=== PATIENT | female | born 1960 | race African-American/Black ===

== ENCOUNTER → 2016-10-16 | Outpatient (CLI) | payer MEDICAID ==
--- NOTE | 2016-10-29 11:16 | WOMENS IMAGING REPORT ---
EXAM DESCRIPTION: BILAT SCREENING MAMMO W/CAD COMPLETED DATE/TIME: 10/16/2016 7:51 am REASON FOR STUDY: Z12.31, ROUTINE SCREENING MAMMO Z12.31 ENCNTR SCREEN MAMMOGRAM FOR MALIGNANT NEOP LASM OF RANDOLPH COMPARISON: None. TECHNIQUE: Standard craniocaudal and mediolateral oblique views of each breast recorded using [employer] l acquisition. LIMITATIONS: None. FINDINGS: RIGHT BREAST MASSES: Several small nodules, most of similar size. There is a dominant nodule in the upper-outer b reast located 3.5- 4.5 cm from the nipple. CALCIFICATIONS: No new or suspicious calcifications. ARCHITECTURAL DISTORTION: None. DEVELOPING DENSITY: None. ASYMMETRY: None noted. OTHER: No other significant findings. LEFT BREAST MASSES: Several small nodules of similar size. CALCIFICATIONS: No new or suspicious calcifications. ARCHITECTURAL DISTORTION: None. DEVELOPING DENSITY: None. ASYMMETRY: None noted. OTHER: No other significant findings. Read with the assistance of CAD. .[facility] - R2 Cenova Version 1.3 .[facility] - R2 Cenova Version 1.3 .[facility] - R2 Cenova Version 2.4 .[facility] [place] [facility] - R2 Cenova Version 2.4 .[facility] - R2 R And D Lab Technician Version 9.2 IMPRESSION: Several small nodules of similar size in both breasts. There is a dominant nodule in th e upper-outer right breast. BREAST DENSITY: b. There are scattered areas of fibroglandular density. BIRAD: 0 Incomplete: Needs Additional Imaging Evaluation and/or prior Mammograms for Comparison. RECOMMENDATION: RECOMMENDED FOLLOW-UP: Recommend additional evaluation with compression views and ul trasound of the right breast. Recommend routine screening mammography of the left breast. The patient will be contacted for additional imaging. COMMENT: The patient has been notified of the results by letter per SA requirements. Additional no tification policies are in place for contacting patient with suspicious or incomplete findings. Quality ID #[id number]: The [employer] recommends an annual screening mammogram for women aged 40 years or over. This facility utilizes a reminder system to ensure that all patients receive reminder letters, and/or direct phone calls for appointments. This includes reminders for routine scr eening mammograms, diagnostic mammograms, or other Breast Imaging Interventions when appropriate. Th is patient will be placed in the appropriate reminder system. The [employer] (ACR) has developed recommendations for screening MRI of the breast s in certain patient populations, to be used in conjunction with mammography. Breast MRI surveillanc e may be appropriate for women with more than 20% lifetime risk of developing breast cancer as deter mined by genetic testing, significant family history of the disease, or history of mantle radiation f or Hodgkins Disease. ACR Practice Guidelines 2008. TECHNICAL DOCUMENTATION: FINDING NUMBER: (1) ASSESSMENT: (1) JOB ID: [id number] [employer]- All Rights Reserved
== END ==
LOC: WI 10:08
PROVIDERS: ATTEND Physician Assistant
DX: Z12.31 Encounter for screening mammogram for malignant neoplasm of breast (principal)
CPT/HCPCS: 77067; G0202

== ENCOUNTER 2017-02-25 04:01 | Emergency (ER) | payer MEDICAID ==
[2017-02-25] MEDS ORDERED: AMLODIPINE BESYLATE 5 MG TABLET PO ONE (04:14)
[2017-02-25] MEDS ORDERED: HYDROCHLOROTHIAZIDE 12.5 MG CAPSULE PO ONE (04:14)
[2017-02-25] MEDS ORDERED: LISINOPRIL 10 MG TABLET PO ONE (04:14)
--- NOTE | 2017-02-25 04:15 | ER Document Report ---
ED Extremity Problem, Lower - General Chief Complaint: Foot Pain Stated Complaint: LEFT FOOT PAIN Notes: The patient is a 57-year-old female, past medical history arthritis, hypertension, presents with 1 day of left first toe pain and foot pain. She does not remember an injury and has not had this before. Patient has not taken her 25 mg hydrochlorothiazide or 5 mg Norvasc yet today. She denies numbness, tingling, open wounds, injury, calf tenderness or fevers. TRAVEL OUTSIDE OF THE [place] IN LAST 30 DAYS: No - Related Data Allergies/Adverse Reactions: egg [Egg] Allergy (Verified 02/25/17 04:03) lisinopril Allergy (Verified 02/25/17 04:30) Past Medical History - General Information source: Patient - Social History Smoking Status: Unknown if Ever Smoked Family History: Hypertension - Past Medical History Cardiac Medical History: Reports: Hx Hypercholesterolemia, Hx Hypertension Psychiatric Medical History: Denies: Hx Depression Review of Systems - Review of Systems Notes: REVIEW OF SYSTEMS: CONSTITUTIONAL: -fevers, -chills EENT: -eye pain, -difficulty swallowing, -nasal congestion CARDIOVASCULAR:-chest pain, -syncope. RESPIRATORY: -cough, -SOB GASTROINTESTINAL: -abdominal pain, - nausea, -vomiting, -diarrhea GENITOURINARY: -dysuria, -hematuria MUSCULOSKELETAL: +left foot pain, -back pain, -neck pain SKIN: -rash or skin lesions. HEMATOLOGIC: -easy bruising or bleeding. LYMPHATIC: -swollen, enlarged glands. NEUROLOGICAL: -altered mental status or loss of consciousness, -headache, - neurologic symptoms PSYCHIATRIC: -anxiety, -depression. ALL OTHER SYSTEMS REVIEWED AND NEGATIVE. Physical Exam - Vital signs Vitals: Temp Pulse Resp BP Pulse Ox 98 F 97 14 218/120 H 99 02/25/17 04:08 02/25/17 04:08 02/25/17 04:08 02/25/17 04:08 02/25/17 04:08 - Notes Notes: PHYSICAL EXAMINATION: GENERAL: Well-appearing, well-nourished and in no acute distress. HEAD: Atraumatic, normocephalic. EYES: Pupils equal round and reactive to light, extraocular movements intact, sclera anicteric, conjunctiva are normal. ENT: nares patent, oropharynx clear without exudates. Moist mucous membranes. NECK: Normal range of motion, supple without lymphadenopathy LUNGS: Breath sounds clear to auscultation bilaterally and equal. No wheezes rales or rhonchi. HEART: Regular rate and rhythm without murmurs ABDOMEN: Soft, nontender, normoactive bowel sounds. No guarding, no rebound. No masses appreciated. EXTREMITIES: Normal range of motion, no pitting or edema. No cyanosis. Tenderness over base of left 1st toe and 1st metatarsal. Strong DP and PT pulses with brisk capillary refill. NEUROLOGICAL: Cranial nerves grossly intact. Normal speech, normal gait. Normal sensory and motor exams. PSYCH: Normal mood, normal affect. SKIN: Warm, Dry, normal turgor, no rashes or lesions noted. Course - Re-evaluation Re-evalutation: Patient provided a dose of her home blood pressure medications. Patient has good peripheral pulses and sensation intact. No erythema or rash. X-ray does not show any acute findings. Instructed her to use her Voltaren cream and follow-up with podiatry for further evaluation and treatment. Suspect a tendonitis of her flexor hallicus longus. - Vital Signs Vital signs: Temp Pulse Resp BP Pulse Ox 98 F 97 17 165/98 H 98 02/25/17 04:08 02/25/17 04:08 02/25/17 05:28 02/25/17 05:28 02/25/17 05:28 - Diagnostic Test Radiology reviewed: Image reviewed, Reports reviewed Radiology results interpreted by me: Left foot x-ray: NAD Discharge - Discharge Clinical Impression: Left foot pain Hypertension Qualifiers: Hypertension type: unspecified Qualified Code(s): I10 - Essential (primary) hypertension Condition: Stable Disposition: HOME, SELF-CARE Additional Instructions: Always take your blood pressure meds as prescribed. You may use your Voltaren cream to help out with your foot pain. The x-ray does not show any broken bones. Follow-up with your primary care physician and correspondence review clerk for further evaluation and treatment. Prescriptions: Diclofenac Sodium [Voltaren] 100 gm TP Q6H PRN #100 gel..gram. PRN Reason: Forms: Elevated Blood Pressure Referrals: KRISTIE VERA MD [Primary Care Provider] - Follow up as needed
[2017-02-25] MEDS ORDERED: IBUPROFEN 600 MG TABLET PO ONE (04:30)
[2017-02-25] MEDS ORDERED: HYDROCHLOROTHIAZIDE 25 MG TABLET PO ONE (04:30)
[2017-02-25] MEDS ORDERED: HYDROCODONE/ACETAMINOPHEN 5-325 MG TABLET PO ONE (04:30)
--- NOTE | 2017-02-25 05:19 | RADIOLOGY REPORT (SQ) ---
EXAM DESCRIPTION: FOOT LEFT COMPLETE COMPLETED DATE/TIME: 02/25/2017 4:58 am REASON FOR STUDY: left foot pain COMPARISON: None. NUMBER OF VIEWS: Three views. TECHNIQUE: AP, lateral and oblique radiographic images acquired of the left foot. LIMITATIONS: None. FINDINGS: MINERALIZATION: Normal. BONES: No acute fracture or dislocation. 0.5 cm subchondral degenerative cyst or chronic erosion of the medial left 1st metatarsal head. Small calcaneal enthesophytes. 0.4 cm ossicular fragment of th e medial malleolus. Moderate diminished calcaneal inclination angle on nonweightbearing view. JOINTS: No effusions. SOFT TISSUES: No soft tissue swelling. No foreign body. OTHER: No other significant finding. IMPRESSION: NO RADIOGRAPHIC EVIDENCE OF ACUTE INJURY. TECHNICAL DOCUMENTATION: JOB ID: [id number] [employer]- All Rights Reserved
[2017-02-25 05:30] VITALS: BP 165/98
== END 2017-02-25 05:48 | disposition home or self-care (01) ==
LOC: ER 04:01
DX: M79.672 Pain in left foot (principal); M79.675 Pain in left toe(s); I10 Essential (primary) hypertension; Z79.899 Other long term (current) drug therapy; Z91.012 Allergy to eggs; Z88.8 Allergy status to other drugs, medicaments and biological substances
CPT/HCPCS: 99283; 73630; J3490 ×3

== ENCOUNTER 2017-04-26 22:57 | Emergency (ER) | payer MEDICAID ==
[2017-04-27] MEDS ORDERED: ENALAPRIL MALEATE 5 MG TABLET PO ONE (00:42)
[2017-04-27] MEDS ORDERED: METOPROLOL TARTRATE 50 MG TABLET PO ONE (00:42)
--- NOTE | 2017-04-27 00:44 | ER Document Report ---
ED Blood Pressure Problem - General Chief Complaint: High Blood Pressure Stated Complaint: POSSIBLE HIGH PRESSURE Time Seen by Provider: 04/27/17 00:42 Mode of Arrival: Ambulatory Information source: Patient Notes: Patient is a 57-year-old female with hypertension who presents to the ER today for high blood pressure. Patient states she has been out of her 2 blood pressure medications, Enalapril and Lopressor for 3 days. Patient states her blood pressure today is been 200s over 100. She admits to headache and blurred vision earlier today but denies headache, blurred vision, chest pain, shortness of breath, nausea or vomiting at this time. She denies any weakness anywhere numbness and tingling. TRAVEL OUTSIDE OF THE [place] IN LAST 30 DAYS: No - Related Data Allergies/Adverse Reactions: egg [Egg] Allergy (Verified 02/25/17 04:03) lisinopril Allergy (Verified 02/25/17 04:30) Past Medical History - General Information source: Patient - Social History Smoking Status: Unknown if Ever Smoked Family History: Hypertension - Past Medical History Cardiac Medical History: Reports: Hx Hypercholesterolemia, Hx Hypertension Renal/ Medical History: Denies: Hx Peritoneal Dialysis Psychiatric Medical History: Denies: Hx Depression Review of Systems - Review of Systems Constitutional: No symptoms reported EENT: No symptoms reported Cardiovascular: No symptoms reported Respiratory: No symptoms reported Gastrointestinal: No symptoms reported Genitourinary: No symptoms reported Female Genitourinary: No symptoms reported Musculoskeletal: No symptoms reported Skin: No symptoms reported Hematologic/Lymphatic: No symptoms reported Neurological/Psychological: No symptoms reported Physical Exam - Vital signs Vitals: Temp Pulse Resp BP Pulse Ox 98.8 F 103 H 18 201/96 H 99 04/26/17 23:02 04/26/17 23:02 04/26/17 23:02 04/26/17 23:02 04/26/17 23:02 - Notes Notes: PHYSICAL EXAMINATION: GENERAL: Well-appearing and in no acute distress. HEAD: Atraumatic, normocephalic. EYES: Pupils equal round and reactive to light, extraocular movements intact, sclera anicteric, conjunctiva are normal. ENT: ear canals without erythema or foreign body, TMs pearly wright with good bony landmarks, nares patent, oropharynx clear without exudates. Moist mucous membranes. NECK: Normal range of motion, supple without lymphadenopathy LUNGS: CTAB and equal. No wheezes rales or rhonchi. HEART: Regular rate and rhythm without murmurs ABDOMEN: Soft, no tenderness. No guarding, no rebound BACK: no vertebral tenderness, normal ROM GI/: no CVA tenderness EXTREMITIES: Normal range of motion, no pitting edema. No cyanosis. NEUROLOGICAL: Cranial nerves grossly intact. Normal sensory/motor exams. PSYCH: Normal mood, normal affect. SKIN: Warm, Dry, normal turgor, no rashes or lesions noted Course - Re-evaluation Re-evalutation: 04/27/17 04:08 Patient was given her nightly doses of her 2 blood pressure medications here in the ER and will be sent home with refills. She is asymptomatic hypertension at this time. - Vital Signs Vital signs: Temp Pulse Resp BP Pulse Ox 98.1 F 82 18 205/100 H 99 04/27/17 00:54 04/27/17 00:54 04/27/17 00:54 04/27/17 00:54 04/27/17 00:54 Discharge - Discharge Clinical Impression: HTN (hypertension) Qualifiers: Hypertension type: unspecified Qualified Code(s): I10 - Essential (primary) hypertension Condition: Stable Disposition: HOME, SELF-CARE Instructions: High Blood Pressure, Requiring Treatment ([facility]) Additional Instructions: Return immediately for any new or worsening symptoms. Follow up with primary care provider, call tomorrow to make followup appointment. Prescriptions: Enalapril Maleate [Vasotec 5 mg Tablet] 5 mg PO BID #60 tablet Metoprolol Tartrate [Lopressor 50 mg Tablet] 50 mg PO Q12H #60 tablet Referrals: KRISTIE VERA MD [Primary Care Provider] - Follow up as needed
[2017-04-27 00:55] VITALS: BP 205/100
--- NOTE | 2017-04-27 08:53 | EKG REPORT ---
SEVERITY:- ABNORMAL ECG - SINUS TACHYCARDIA LEFT ATRIAL ABNORMALITY PROBABLE LEFT VENTRICULAR HYPERTROPHY : Confirmed by: Daniel Moreno MD 27-Apr-2017 08:53:10
== END 2017-04-27 00:55 | disposition home or self-care (01) ==
LOC: ER 22:57
DX: I10 Essential (primary) hypertension (principal); R51 Headache; H53.8 Other visual disturbances; R07.9 Chest pain, unspecified; R06.02 Shortness of breath; R11.2 Nausea with vomiting, unspecified; Z79.899 Other long term (current) drug therapy
CPT/HCPCS: 93005; 99283; 93010; J3490 ×2

== ENCOUNTER 2017-05-05 09:44 | Emergency (ER) | payer MEDICAID ==
--- NOTE | 2017-05-05 10:20 | ER Document Report ---
HPI - HPI Patient complains to provider of: Runny nose cough fever Onset: Other - 4 days Pain Level: 3 Context: 57-year-old hypertensive female who took her medicine before she came has had fever with body aches, runny nose, cough, rib soreness due to coughing, and diarrhea that started today. No chest pain or shortness of breath. No abdominal pain. The fever has really resolved. 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 She came to the emergency room because she was worried that she would get the dangerous bug that is killing people. Associated Symptoms: None Exacerbated by: Denies Relieved by: Denies Similar symptoms previously: Yes Recently seen / treated by doctor: No - ROS ROS below otherwise negative: Yes Systems Reviewed and Negative: Yes All other systems reviewed and negative Past Medical History - General Information source: Patient - Social History Smoking Status: Current Every Day Smoker Frequency of alcohol use: None Drug Abuse: None Occupation: [employer] Lives with: Family Family History: Hypertension - Past Medical History Cardiac Medical History: Reports: Hx Hypercholesterolemia, Hx Hypertension Renal/ Medical History: Denies: Hx Peritoneal Dialysis Surgical Hx: Negative Vertical Provider Document - CONSTITUTIONAL Agree With Documented VS: Yes - Obese Exam Limitations: No Limitations - INFECTION CONTROL TRAVEL OUTSIDE OF THE [place] IN LAST 30 DAYS: No - HEENT HEENT: Normocephalic, Pharyngeal Erythema - Minimal. negative: Conjuctival Injection, Tympanic Membrane Red, Tympanic Membrane Bulging Notes: Clear runny nose - NECK Neck: Supple. negative: Lymphadenopathy-Left, Lymphadenopathy-Right - RESPIRATORY Respiratory: Breath Sounds Normal, No Respiratory Distress O2 Sat by Pulse Oximetry: 97 - CARDIOVASCULAR Cardiovascular: Regular Rate, Regular Rhythm - MUSCULOSKELETAL/EXTREMETIES Musculoskeletal/Extremeties: MAEW - NEURO Level of Consciousness: Awake, Alert, Appropriate - DERM Integumentary: Warm, Dry Course - Vital Signs Vital signs: Temp Pulse Resp BP Pulse Ox 99.1 F 92 16 164/91 H 97 05/05/17 09:50 05/05/17 09:50 05/05/17 09:50 05/05/17 09:50 05/05/17 09:50 Discharge - Discharge Clinical Impression: Influenza-like illness, Diarrhea Condition: Good Disposition: HOME, SELF-CARE Instructions: Influenza ([facility]) [id number], Acetaminophen, Diarrhea, Nonspecific ( [facility]) Additional Instructions: plenty of fluids Coolmist humidifier, wash it daily Iahi-mdk-uwnzoca Mucinex with decongestant Rest Return to the emergency room if symptoms worsen with chest pain shortness of breath trouble breathing, recurrence of the fever. Referrals: KRISTIE VERA MD [Primary Care Provider] - Follow up as needed
[2017-05-05 10:55] VITALS: BP 158/88
== END 2017-05-05 10:50 | disposition home or self-care (01) ==
LOC: ER 09:44
DX: J11.1 Influenza due to unidentified influenza virus with other respiratory manifestations (principal); R19.7 Diarrhea, unspecified; R50.9 Fever, unspecified; R09.89 Other specified symptoms and signs involving the circulatory and respiratory systems; R05 Cough; I10 Essential (primary) hypertension; F17.200 Nicotine dependence, unspecified, uncomplicated; E66.9 Obesity, unspecified; Z68.35 Body mass index [BMI] 35.0-35.9, adult
CPT/HCPCS: 99283

== ENCOUNTER → 2017-06-26 | Outpatient (CLI) | payer MEDICAID ==
--- NOTE | 2017-06-26 14:24 | RADIOLOGY REPORT (SQ) ---
EXAM DESCRIPTION: U/S NON-OB PELVIS TV W/O DOP COMPLETED DATE/TIME: 06/26/2017 9:37 am REASON FOR STUDY: DYSPAREUNIA N94.10 UNSPECIFIED DYSPAREUNIA COMPARISON: None. TECHNIQUE: Dynamic and static grayscale images acquired of the pelvis via transvaginal approach and recorded on PACS. Additional selected color Doppler and spectral images recorded. LIMITATIONS: Bowel gas. Endovaginal technique only FINDINGS: UTERUS: Uterus is enlarged, at least 13 x 8 x 7 cm in size. Very heterogeneous myometrium with multiple hypoechoic masses likely fibroids. ENDOMETRIAL STRIPE: Not well seen CERVIX: 3 cm in length. Closed. RIGHT OVARY: Not visualized RIGHT OVARY DOPPLER: Not performed LEFT OVARY: Not well seen. Overall, the left ovary measures about 5 x 4 x 3 cm in size with a multi septated cystic lesion 2.9 x 2.7 cm in size LEFT OVARY DOPPLER: Normal arterial vascular flow without evidence for torsion. FREE FLUID: None noted. OTHER: No other significant finding. IMPRESSION: Very limited study due to bowel gas and transvaginal technique. Enlarged heterogeneous uterus from multiple fibroids. Right ovary not visualized. Enlarged left ovary with complex 2.9 x 2.7 cm cystic lesion Consider follow-up MRI pelvis without and with contrast, to evaluate fibroid uterus and left ovary co mplex cystic lesion TECHNICAL DOCUMENTATION: JOB ID: [id number] [employer] All Rights Reserved Reading location - IP/workstation name: [email or web address]-[email or web address]
== END ==
LOC: RAD 08:44
PROVIDERS: ATTEND Physician Assistant
DX: N94.10 Unspecified dyspareunia (principal); D25.9 Leiomyoma of uterus, unspecified; N83.292 Other ovarian cyst, left side
CPT/HCPCS: 76830

== ENCOUNTER 2017-12-16 11:29 | Emergency (ER) | payer BC, MEDICAID ==
--- NOTE | 2017-12-16 13:36 | ER Document Report ---
HPI - HPI Patient complains to provider of: Anterior ankle pain Onset: This morning Pain Level: 5 Context: 57-year-old female c/o anterior right ankle pain because she got out of bed this morning and fell because her right foot was "asleep". She fell onto her left knee but thnks she injuyred the ankle because it hurts to walk on it. She also does not have her blood pressure medication because when she evacuated she did not realize she had brought it and then she left it there. No headache or dizziness. No chest pain or shortness of breath. Associated Symptoms: None Exacerbated by: Walking Relieved by: Denies Similar symptoms previously: No Recently seen / treated by doctor: No - ROS ROS below otherwise negative: Yes Systems Reviewed and Negative: Yes All other systems reviewed and negative Past Medical History - General Information source: Patient - Social History Smoking Status: Unknown if Ever Smoked Lives with: Family Family History: Hypertension - Past Medical History Cardiac Medical History: Reports: Hx Hypercholesterolemia, Hx Hypertension Renal/ Medical History: Denies: Hx Peritoneal Dialysis Surgical Hx: Negative Vertical Provider Document - CONSTITUTIONAL Agree With Documented VS: Yes Exam Limitations: No Limitations - INFECTION CONTROL TRAVEL OUTSIDE OF THE [place] IN LAST 30 DAYS: No - NECK Neck: Supple - MUSCULOSKELETAL/EXTREMETIES Musculoskeletal/Extremeties: MAEW, FROM, Tender - Very tender anterior right ankle mild swelling. negative: Eccymosis - NEURO Level of Consciousness: Awake, Alert Motor/Sensory: No Motor Deficit, No Sensory Deficit Notes: 2+ DP - DERM Integumentary: No Rash Course - Re-evaluation Re-evalutation: 12/16/17 X-rays negative per radiologist and her blood pressure came down nicely treating the pain. I gave her prescription for both of her blood pressure medicines. and gave Her a dose here of both - Vital Signs Vital signs: Temp Pulse Resp BP Pulse Ox 97.7 F 88 16 225/106 H 98 12/16/17 11:37 12/16/17 11:37 12/16/17 11:37 12/16/17 11:37 12/16/17 11:37 Procedures - Immobilization Right Ankle Time completed: 15:20 Immobilizer type: Donald wrap, Crutches Performed by: PCT Post-Proc Neuro Vasc Exam: Normal Alignment checked and good: Yes Discharge - Discharge Clinical Impression: Arthritis of right foot Hypertension Qualifiers: Hypertension type: essential hypertension Qualified Code(s): I10 - Essential ( primary) hypertension Right ankle injury Qualifiers: Encounter type: initial encounter Qualified Code(s): S99.911A - Unspecified injury of right ankle, initial encounter Condition: Good Disposition: HOME, SELF-CARE Instructions: Acetaminophen, Arthritis ([facility]), Use of Crutches ([facility]), Ibuprofen (General) ([facility]), Sprained Ankle ([facility]) Additional Instructions: Crutches for a few days Donald wrap for comfort See the orthopedic doctor if it continues to hurt Elevate today Copy of negative x-rays given to you, Prescriptions: Ibuprofen [Motrin 600 mg Tablet] 600 mg PO Q8HP PRN #20 tablet PRN Reason: Enalapril Maleate [Vasotec] 5 mg PO BID #60 tablet Metoprolol Tartrate 50 mg PO BID #60 tablet Forms: Return to Work Referrals: CECIL YUSUF PA [PHYSICIAN TANK TRUCK LOADER] - Follow up tomorrow MARVIN VO MD [ACTIVE STAFF] - Follow up as needed
[2017-12-16] MEDS ORDERED: OXYCODONE-ACETAMINOPHEN 5-325 MG TABLET PO ONE (13:45)
[2017-12-16] MEDS ORDERED: ENALAPRIL MALEATE 5 MG TABLET PO ONE (13:45)
[2017-12-16] MEDS ORDERED: ONDANSETRON 4 MG TAB.RAPDIS PO ONE (13:45)
--- NOTE | 2017-12-16 14:24 | RADIOLOGY REPORT (SQ) ---
EXAM DESCRIPTION: FOOT RIGHT COMPLETE COMPLETED DATE/TIME: 12/16/2017 2:16 pm REASON FOR STUDY: pain in foot COMPARISON: None. NUMBER OF VIEWS: Three views. TECHNIQUE: AP, lateral and oblique without weight bearing radiographic images acquired of the right foot. LIMITATIONS: None. FINDINGS: MINERALIZATION: Normal. BONES: No acute fracture or dislocation. No worrisome bone lesions. Osteophytes tarsometatarsal joint s. JOINTS: Hallux valgus. No erosions. SOFT TISSUES: No swelling. No calcifications. OTHER: No other significant finding. IMPRESSION: Degenerative changes. TECHNICAL DOCUMENTATION: JOB ID: [id number] [employer]- All Rights Reserved Reading location - IP/workstation name: [email or web address]
--- NOTE | 2017-12-16 14:26 | RADIOLOGY REPORT (SQ) ---
EXAM DESCRIPTION: ANKLE RIGHT COMPLETE COMPLETED DATE/TIME: 12/16/2017 2:16 pm REASON FOR STUDY: fall, pain COMPARISON: None. NUMBER OF VIEWS: Three views. TECHNIQUE: AP, lateral, and oblique radiographic images acquired of the right ankle. LIMITATIONS: None. FINDINGS: MINERALIZATION: Normal. BONES: No acute fracture or dislocation. No worrisome bone lesions. JOINTS: No effusions. SOFT TISSUES: Medial swelling. OTHER: No other significant finding. IMPRESSION: No fracture. TECHNICAL DOCUMENTATION: JOB ID: [id number] [employer]- All Rights Reserved Reading location - IP/workstation name: [email or web address]
[2017-12-16 15:24] VITALS: BP 182/88
== END 2017-12-16 15:25 | disposition home or self-care (01) ==
LOC: ER 11:29
DX: M19.071 Primary osteoarthritis, right ankle and foot (principal); S99.911A Unspecified injury of right ankle, initial encounter; W18.30XA Fall on same level, unspecified, initial encounter; Y92.003 Bedroom of unspecified non-institutional (private) residence as the place of occurrence of the external cause; E78.00 Pure hypercholesterolemia, unspecified; I10 Essential (primary) hypertension
CPT/HCPCS: 99283; 73610; 73630; S0119; J3490

== ENCOUNTER 2018-03-20 17:16 | Emergency (ER) | payer BC ==
[2018-03-20] MEDS ORDERED: ASPIRIN 81 MG TABLET, CHEWABLE PO ONE (19:00)
--- NOTE | 2018-03-20 19:34 | RADIOLOGY REPORT (SQ) ---
EXAM DESCRIPTION: CHEST SINGLE VIEW COMPLETED DATE/TIME: 03/20/2018 7:21 pm REASON FOR STUDY: cp COMPARISON: 02/02/2015 EXAM PARAMETERS: NUMBER OF VIEWS: One view. TECHNIQUE: Single frontal radiographic view of the chest acquired. RADIATION DOSE: NA LIMITATIONS: None. FINDINGS: LUNGS AND PLEURA: No opacities, masses or pneumothorax. No pleural effusion. MEDIASTINUM AND HILAR STRUCTURES: No masses. Contour normal. HEART AND VASCULAR STRUCTURES: Heart normal in size. Normal vasculature. BONES: No acute findings. HARDWARE: None in the chest. OTHER: No other significant finding. IMPRESSION: NO ACUTE RADIOGRAPHIC FINDING IN THE CHEST. TECHNICAL DOCUMENTATION: JOB ID: [id number] [employer]- All Rights Reserved Reading location - IP/workstation name: [email or web address]
[2018-03-20] MEDS ORDERED: ONDANSETRON 4 MG TAB.RAPDIS PO ONE (19:38)
--- NOTE | 2018-03-20 19:41 | ER Document Report ---
ED Medical Screen (RME) - General Chief Complaint: Chest Pain Stated Complaint: CHEST PAIN Time Seen by Provider: 03/20/18 19:38 Notes: 58-year-old female chief complaint of feeling pain in the center and left side of her chest with sensation of shortness of breath that began at 4 PM, she states that shortly after this she became nauseated and vomited. She feels much improved now but symptoms have not completely resolved. She denies any ab dominal pain. Only past medical history reported are hypertension (medicated) and smoking. TRAVEL OUTSIDE OF THE [place] IN LAST 30 DAYS: No - Related Data Allergies/Adverse Reactions: egg [Egg] Allergy (Verified 12/16/17 11:31) lisinopril Allergy (Verified 12/16/17 11:31) Past Medical History - Past Medical History Cardiac Medical History: Reports: Hx Hypercholesterolemia, Hx Hypertension Renal/ Medical History: Denies: Hx Peritoneal Dialysis Psychiatric Medical History: Denies: Hx Depression Physical Exam - Vital signs Vitals: Temp Pulse Resp BP Pulse Ox 98.1 F 77 18 149/70 H 99 03/20/18 17:29 03/20/18 17:29 03/20/18 17:29 03/20/18 17:29 03/20/18 17:29 - General General appearance: Appears well In distress: None - Respiratory Chest status: Tender - Tender over left anterior mid chest wall - Cardiovascular Rhythm: Regular. No: Tachycardia Heart sounds: Normal auscultation, S1 appreciated, S2 appreciated Course - Re-evaluation Re-evalutation: I have greeted and performed a rapid initial assessment of this patient. A comprehensive ED assessment and evaluation of the patient, analysis of test results and completion of the medical decision making process will be conducted by additional ED providers. - Vital Signs Vital signs: Temp Pulse Resp BP Pulse Ox 98.1 F 77 18 149/70 H 99 03/20/18 17:29 03/20/18 17:29 03/20/18 17:29 03/20/18 17:29 03/20/18 17:29 Doctor's Discharge - Discharge Referrals: KRISTIE VERA MD [Primary Care Provider] - Follow up as needed
[2018-03-20 20:25] LABS: ABSOLUTE BASOPHILS # (AUTO) 0.1 10^3/uL (0.0-0.2); ABSOLUTE EOSINOPHILS # (AUTO) 0.1 10^3/uL (0.0-0.6); ABSOLUTE MONOCYTES (AUTO) 0.4 10^3/uL (0.1-1.4); ABSOLUTE NEUT (AUTO) 6.1 10^3/uL (1.7-8.2); BASOPHILS % (AUTO) 0.9 % (0-2); EOSINOPHILS % (AUTO) 0.7 % (0-6); HEMATOCRIT 35.5 % (36.0-47.0); HEMOGLOBIN 11.7 g/dL (12.0-15.5); LYMPHOCYTES % (AUTO) 23.4 % (13-45); MEAN CORPUSCULAR HEMOGLOBIN 28.3 pg (27.0-33.4); MEAN CORPUSCULAR HGB CONC 33.1 g/dL (32.0-36.0); MEAN CORPUSCULAR VOLUME 85 fl (80-97); MONOCYTES % (AUTO) 4.4 % (3-13); PLATELET COUNT 366 10^3/uL (150-450); RED BLOOD COUNT 4.16 10^6/uL (3.72-5.28); RED CELL DISTRIBUTION WIDTH 12.8 % (11.5-14.0); SEGMENTED NEUTROPHILS % (AUTO) 70.6 % (42-78); TOTAL CELLS COUNTED % (AUTO) 100 %; WHITE BLOOD COUNT 8.7 10^3/uL (4.0-10.5)
[2018-03-20 20:42] LABS: ALANINE AMINOTRANSFERASE 22 U/L (9-52); ALBUMIN 4.4 g/dL (3.5-5.0); ALKALINE PHOSPHATASE 110 U/L (38-126); ANION GAP 11 (5-19); ASPARTATE AMINO TRANSFERASE 22 U/L (14-36); BILIRUBIN,DIRECT 0.3 mg/dL (0.0-0.4); BILIRUBIN,TOTAL 0.4 mg/dL (0.2-1.3); BLOOD UREA NITROGEN 45 mg/dL (7-20); CALCIUM 9.8 mg/dL (8.4-10.2); CARBON DIOXIDE 24 mmol/L (22-30); CHLORIDE 108 mmol/L (98-107); GLUCOSE 88 mg/dL (75-110); POTASSIUM 4.4 mmol/L (3.6-5.0); SODIUM 142.5 mmol/L (137-145); TOTAL PROTEIN 7.6 g/dL (6.3-8.2)
[2018-03-20] MEDS ORDERED: HEPARIN SODIUM,PORCINE/D5W 25,000 UNIT/250 ML RTUINJ IV PRN (21:06)
[2018-03-20] MEDS ORDERED: HEPARIN SOD (PORCINE) 1,000 UNIT/ML 10 ML VIAL IV ONE (21:06)
[2018-03-20] MEDS ORDERED: NITROGLYCERIN 0.4 MG/TAB 25 TAB/BOTTLE SL PRN (21:07)
--- NOTE | 2018-03-20 21:13 | ER Document Report ---
ED Cardiac - General Chief Complaint: Chest Pain Stated Complaint: CHEST PAIN Time Seen by Provider: 03/20/18 19:38 TRAVEL OUTSIDE OF THE [place] IN LAST 30 DAYS: No - HPI Patient complains to provider of: Chest pain Was the onset of pain: Sudden Is the pain a: New problem Chest pain location: Substernal Quality of pain: Constant, Pressure. denies: Radiating Severity now: Mild Severity at worst: Severe Cardiac risk factors: Hypertension, Smoker, Dyslipidemia Associated symptoms: Nausea/vomiting Exacerbated by: Denies Relieved by: Nothing Similar symptoms previously: No Recently seen / treated by doctor: No Notes: Patient is a 58-year-old female that presents to the emergency department for chief complaint of chest pain. Patient states she was driving in her car around 4 PM today and had sudden onset of substernal chest pressure. She states it felt like a heaviness on her chest. She got very nauseated and had multiple episodes of emesis. She reports some mild shortness of breath stating it felt like she could not take a deep breath in. She denied any diaphoresis or radiation of her pain. She denies history of heart disease in the past. She states many years ago she had a negative cardiac stress test. She denies any known CAD. She does not take aspirin daily. Patient currently states she is feeling much better but still has a dull ache in her chest. Her nausea has completely resolved. Past Medical History: Hypertension, hyperlipidemia Past Surgical History: Reviewed in chart Social History: Daily tobacco. Denies drugs and alcohol Family History: Reviewed and noncontributory for presenting illness Allergies: Reviewed, see documented allergy list. REVIEW OF SYSTEMS: CONSTITUTIONAL : No fever No chills No diaphoresis No recent illness EENT: No vision changes No congestion No sore throat CARDIOVASCULAR: chest pain No palpitations RESPIRATORY: shortness of breath No cough No difficulty breathing GASTROINTESTINAL: No abdominal pain nausea vomiting No diarrhea GENITOURINARY: No dysuria No hematuria No difficulty urinating MUSCULOSKELETAL: No back pain No leg pain No arm pain SKIN: No rashes No lesions LYMPHATIC: No swollen, enlarged glands. NEUROLOGICAL: No lightheadedness No headache No weakness No paresthesias PSYCHIATRIC: No anxiety No depression PHYSICAL EXAMINATION: Vital signs reviewed, nursing noted reviewed. GENERAL: Well-appearing, well-nourished and in no acute distress. HEAD: Atraumatic, normocephalic. EYES: Eyes appear normal, extraocular movements intact, sclera anicteric, conjunctiva are normal. ENT: nares patent, oropharynx clear without exudates. Moist mucous membranes. NECK: Normal range of motion, supple without lymphadenopathy LUNGS: Breath sounds clear to auscultation bilaterally and equal. No wheezes rales or rhonchi. HEART: Regular rate and rhythm without murmurs ABDOMEN: Soft, nontender, normoactive bowel sounds. No rebound, guarding, or rigidity. No masses appreciated. EXTREMITIES: Nontender, good range of motion, no pitting or edema. NEUROLOGICAL: No focal neurological deficits. Moves all extremities spontaneously Motor and sensory grossly intact on exam. PSYCH: Normal mood, normal affect. SKIN: Warm, Dry, normal turgor, no rashes or lesions noted on exposed skin - Related Data Allergies/Adverse Reactions: egg [Egg] Allergy (Verified 12/16/17 11:31) lisinopril Allergy (Verified 12/16/17 11:31) Past Medical History - Social History Smoking Status: Current Every Day Smoker Family History: Hypertension Patient has suicidal ideation: No Patient has homicidal ideation: No - Past Medical History Cardiac Medical History: Reports: Hx Hypercholesterolemia, Hx Hypertension Renal/ Medical History: Denies: Hx Peritoneal Dialysis Psychiatric Medical History: Denies: Hx Depression Physical Exam - Vital signs Vitals: Temp Pulse Resp BP Pulse Ox 98.1 F 77 18 149/70 H 99 03/20/18 17:29 03/20/18 17:29 03/20/18 17:29 03/20/18 17:29 03/20/18 17:29 Course - Re-evaluation Re-evalutation: 03/20/18 21:11 Vitals reviewed. Nursing notes reviewed. Patient given aspirin for her chest pain. I ordered nitro for her residual discomfort. Patient's EKG showed no ST elevation. Her troponin has come back positive which is new for her on chart review. I am concerned that she is having NSTEMI. Patient will be started on heparin infusion. The remainder of her workup is unremarkable. Chest x-ray negative. I did discuss patient's findings with her and my concern for her having an acute CO. She states she does not wish to stay in the emergency room. She seems to understand her current situation. I have ordered repeat EKG and am awaiting the patient's response whether she is going to sign out AGAINST MEDICAL ADVICE or allow me to admit her at a facility with the ability to do cardiac catheterization. Laboratory 03/20/18 03/20/18 03/20/18 20:14 20:14 20:14 WBC 8.7 RBC 4.16 Hgb 11.7 L Hct 35.5 L MCV 85 MCH 28.3 MCHC 33.1 RDW 12.8 Plt Count 366 Seg Neutrophils % 70.6 Lymphocytes % 23.4 Monocytes % 4.4 Eosinophils % 0.7 Basophils % 0.9 Absolute Neutrophils 6.1 Absolute Lymphocytes 2.0 Absolute Monocytes 0.4 Absolute Eosinophils 0.1 Absolute Basophils 0.1 Sodium 142.5 Potassium 4.4 Chloride 108 H Carbon Dioxide 24 Anion Gap 11 BUN 45 H Creatinine 1.52 H Est GFR ( Amer) 42 L Est GFR (Non-Af Amer) 35 L Glucose 88 Calcium 9.8 Total Bilirubin 0.4 Direct Bilirubin 0.3 Neonat Total Bilirubin Not Reportable Neonat Direct Bilirubin Not Reportable Neonat Indirect Bili Not Reportable AST 22 ALT 22 Alkaline Phosphatase 110 Troponin I 0.188 Total Protein 7.6 Albumin 4.4 Chest X-Ray 03/20/18 19:00 IMPRESSION: NO ACUTE RADIOGRAPHIC FINDING IN THE CHEST. 03/20/18 21:41 Patient reevaluated and is in agreement with being transferred for further cardiac care. She will be sent to [facility] for further management. Heparin drip was initiated. Dr. Roque accepts patient for transfer. Patient second EKG shows new ST elevation which is not quite meeting STEMI criteria, third EKG is being obtained right now. She is currently pain-free. 03/20/18 22:09 Patient's third EKG shows isolated ST changes in V3, she is not having a STEMI, she is still pain-free. Patient stable for transfer. - Vital Signs Vital signs: Temp Pulse Resp BP Pulse Ox 98.1 F 77 16 176/95 H 100 03/20/18 17:29 03/20/18 17:29 03/20/18 21:02 03/20/18 21:02 03/20/18 21:02 - Laboratory Result Diagrams: 03/20/18 20:14 03/20/18 20:14 Laboratory results interpreted by me: 03/20/18 03/20/18 03/20/18 20:14 20:14 20:14 Hgb 11.7 L Hct 35.5 L APTT 36.6 H Chloride 108 H BUN 45 H Creatinine 1.52 H Est GFR ( Amer) 42 L Est GFR (Non-Af Amer) 35 L - EKG Interpretation by Me Additional EKG results interpreted by me: 03/20/18 21:13 Interpreted by myself 1724: Normal sinus rhythm, rate 77, normal axis, no ectopy, no ST elevation, LVH 03/20/18 21:44 Interpreted by myself 2116: Normal sinus rhythm, rate 65, LVH, new ST elevation in V3 V4 with good morphology, no reciprocal ST depressions 03/20/18 22:06 Interpreted by myself 2155: Normal sinus rhythm, rate 67, normal axis, LVH, mild ST elevation V3 with no elevation in V4, no ST depression Critical Care Note - Critical Care Note Total time excluding time spent on procedures (mins): 45 Comments: Multiple repeat evaluations, interpretation of multiple EKGs, potential for cardiovascular decompensation, conversation with medical affairs specialist Discharge - Discharge Clinical Impression: NSTEMI (non-ST elevated myocardial infarction) Condition: Stable Disposition: [facility]
[2018-03-20 22:00] LABS: INTERNATIONAL RATION (INR) 0.97; PARTIAL THROMBOPLASTIN TIME 36.6 SEC (23.5-35.8); PROTHROMBIN TIME 13.4 SEC (11.4-15.4)
[2018-03-20 23:51] VITALS: BP 173/87
[2018-03-21] MEDS ORDERED: HEPARIN SOD (PORCINE) 1,000 UNIT/ML 10 ML VIAL IV PRN (00:07)
--- NOTE | 2018-03-21 15:07 | EKG REPORT ---
SEVERITY:- ABNORMAL ECG - SINUS RHYTHM LEFT VENTRICULAR HYPERTROPHY : Confirmed by: Ian Maya 21-Mar-2018 15:07:01
--- NOTE | 2018-03-21 15:08 | EKG REPORT ---
SEVERITY:- ABNORMAL ECG - SINUS RHYTHM LEFT VENTRICULAR HYPERTROPHY ST ELEVATION SUGGESTS PERICARDITIS : Confirmed by: Ian Myaa 21-Mar-2018 15:07:12
--- NOTE | 2018-03-21 15:08 | EKG REPORT ---
SEVERITY:- ABNORMAL ECG - SINUS RHYTHM LEFT VENTRICULAR HYPERTROPHY : Confirmed by: Ian Maya 21-Mar-2018 15:07:21
== END 2018-03-21 00:05 | disposition short-term general hospital (02) ==
LOC: ER 17:16
DX: I21.4 Non-ST elevation (NSTEMI) myocardial infarction (principal); R11.2 Nausea with vomiting, unspecified; R06.02 Shortness of breath; I10 Essential (primary) hypertension; Z91.012 Allergy to eggs; Z88.8 Allergy status to other drugs, medicaments and biological substances
CPT/HCPCS: 93005; 36415; 85025; 85610; 85730; 80053; 84484; 71045; 93010; J1644 ×2; S0119; 96365; 96366; 96376; 99291

== ENCOUNTER 2018-05-11 08:47 | Emergency (ER) | payer BC ==
[2018-05-11 08:53] VITALS: BP 171/91
--- NOTE | 2018-05-11 09:34 | ER Document Report ---
Entered by KEHINDE SABA SCRIBE 05/11/18 0930 Acting as scribe for:SARINA FORBES DO ED Medical Screen (RME) - General Chief Complaint: Post Surgical Bleeding Stated Complaint: POST OPERATION BLEEDING Time Seen by Provider: 05/11/18 09:25 Primary Care Provider: KRISTIE VERA MD [Primary Care Provider] - Follow up as needed Mode of Arrival: Ambulatory Information source: Patient Notes: Patient is a 66-year-old female with a history of an recent open heart surgery presents to the emergency department complaining of bleeding from her anterior chest wall onset this morning. Patient states that she had a heart open heart surgery on April 20, 2018. She states this morning she noticed a "bubble" forming over her sternum that opened and bled copiously. She denies any pain or other focal symptoms. Of significance, patient states that she has been doing a lot of her weight training this past week. I have greeted and performed a rapid initial assessment of this patient. A comprehensive ED assessment and evaluation of the patient, analysis of test results and completion of the medical decision making process will be conducted by additional ED providers. GENERAL: Alert, interacts well. No acute distress. HEAD: Normocephalic, Atraumatic. NECK: Full range of motion. Supple. Trachea midline. LUNGS: No respiratory distress. EXTREMITIES: Moves all four extremities spontaneously. PSYCH: Normal affect, normal mood. CHEST: Well healed sternotomy incision noted with a 1 cm skin tag/area of granulation tissue without fluctuance or signs of infection. There is a small amount of bleeding coming from this tissue. This is mildly tender to palpation. No surrounding erythema TRAVEL OUTSIDE OF THE [place] IN LAST 30 DAYS: No - Related Data Allergies/Adverse Reactions: egg [Egg] Allergy (Verified 05/11/18 09:34) lisinopril Allergy (Verified 05/11/18 09:34) Past Medical History - Past Medical History Cardiac Medical History: Reports: Hx Hypercholesterolemia, Hx Hypertension Renal/ Medical History: Denies: Hx Peritoneal Dialysis Psychiatric Medical History: Denies: Hx Depression Physical Exam - Vital signs Vitals: Temp Pulse Resp BP Pulse Ox 98.9 F 80 20 171/91 H 100 05/11/18 08:52 05/11/18 08:52 05/11/18 08:52 05/11/18 08:52 05/11/18 08:52 Course - Vital Signs Vital signs: Temp Pulse Resp BP Pulse Ox 98.9 F 80 20 171/91 H 100 05/11/18 08:52 05/11/18 08:52 05/11/18 08:52 05/11/18 08:52 05/11/18 08:52 Doctor's Discharge - Discharge Referrals: KRISTIE VERA MD [Primary Care Provider] - Follow up as needed I personally performed the services described in the documentation, reviewed and edited the documentation which was dictated to the scribe in my presence, and it accurately records my words and actions.
--- NOTE | 2018-05-11 10:11 | ER Document Report ---
ED General - General Chief Complaint: Post Surgical Bleeding Stated Complaint: POST OPERATION BLEEDING Time Seen by Provider: 05/11/18 09:25 Primary Care Provider: KRISTIE VERA MD [Primary Care Provider] - Follow up as needed Mode of Arrival: Ambulatory Information source: Patient Notes: Patient is a 58-year-old female who presents to the emergency department with history of open heart surgery which was performed on 03/21/18 at [facility]. Patient has a midsternal incision and patient states that this morning she had what she describes as a bubble to the middle of the incision which then opened up this morning and bled. Patient reports there was a lot of bleeding. Patient denies any pain. She denies any other symptoms to include chest pain, shortness of breath, nausea or vomiting. Patient reports the last time she saw her surgeon for a follow-up was on 05/02/18. TRAVEL OUTSIDE OF THE [place] IN LAST 30 DAYS: No - Related Data Allergies/Adverse Reactions: egg [Egg] Allergy (Verified 05/11/18 09:34) lisinopril Allergy (Verified 05/11/18 09:34) Past Medical History - General Information source: Patient - Social History Smoking Status: Former Smoker Frequency of alcohol use: None Drug Abuse: None Family History: Hypertension Patient has suicidal ideation: No Patient has homicidal ideation: No - Past Medical History Cardiac Medical History: Reports: Hx Hypercholesterolemia, Hx Hypertension Renal/ Medical History: Denies: Hx Peritoneal Dialysis Psychiatric Medical History: Denies: Hx Depression Past Surgical History: Reports: Hx Cardiac Surgery, Hx Open Heart Surgery - 02/2018 Review of Systems - Review of Systems Constitutional: No symptoms reported EENT: No symptoms reported Cardiovascular: No symptoms reported. denies: Chest pain, Palpitations Respiratory: No symptoms reported. denies: Hurts to breathe, Short of breath Gastrointestinal: No symptoms reported. denies: Nausea, Vomiting Genitourinary: No symptoms reported Female Genitourinary: No symptoms reported Musculoskeletal: See HPI Skin: See HPI Physical Exam - Vital signs Vitals: Temp Pulse Resp BP Pulse Ox 98.9 F 80 20 171/91 H 100 05/11/18 08:52 05/11/18 08:52 05/11/18 08:52 05/11/18 08:52 05/11/18 08:52 - Notes Notes: PHYSICAL EXAMINATION: GENERAL: Well-appearing, well-nourished and in no acute distress. HEAD: Atraumatic, normocephalic. EYES: Pupils equal round and reactive to light, extraocular movements intact, conjunctiva are normal. ENT: Nares patent, oropharynx clear without exudates. Moist mucous membranes. NECK: Normal range of motion, supple without lymphadenopathy LUNGS: Breath sounds clear to auscultation bilaterally and equal. No wheezes rales or rhonchi. HEART: Regular rate and rhythm without murmurs Chest: Mid sternal incision noted, appears to be healing well, no erythema. Small area of exposed granulation tissue just between the breasts, no fluctuance or induration. ABDOMEN: Soft, nontender, nondistended abdomen. No guarding, no rebound. No masses appreciated. Female : deferred Musculoskeletal: Normal range of motion, no pitting or edema. No cyanosis. NEUROLOGICAL: Cranial nerves grossly intact. Normal speech, normal gait. Normal sensory, motor exams PSYCH: Normal mood, normal affect. SKIN: Warm, Dry, normal turgor, no rashes or lesions noted. Course - Re-evaluation Re-evalutation: 05/11/18 10:08 Call placed to [facility], awaiting callback. 05/11/18 10:25 Dr. Melgar, Manager Of Business Operations at [facility]. He recommends placing a nonstick dressing over the area. He states unless I feel there is a reason to admit this patient he will have his outpatient team call her tomorrow to schedule a follow-up appointment. I do not see any indication for patient admission as patient is completely asymptomatic at this time. Patient will be discharged home in stable condition. - Vital Signs Vital signs: Temp Pulse Resp BP Pulse Ox 98.9 F 80 20 171/91 H 100 05/11/18 08:52 05/11/18 08:52 05/11/18 08:52 05/11/18 08:52 05/11/18 08:52 Discharge - Discharge Clinical Impression: Problem involving surgical incision Condition: Stable Disposition: HOME, SELF-CARE Additional Instructions: I called and spoke with Dr. melagr who is on your surgical team at [facility]. He states that his outpatient team will call you tomorrow to schedule a follow-up appointment. In the meanwhile please keep a sterile nonstick dressing on the area at all times. Return to the emergency department if you experience any new or worrisome symptoms. We will be happy to reevaluate you at any time. Referrals: KRISTIE VERA MD [Primary Care Provider] - Follow up as needed
== END 2018-05-11 10:33 | disposition home or self-care (01) ==
LOC: ER 08:47
DX: I97.620 Postprocedural hemorrhage of a circulatory system organ or structure following other procedure (principal); Z98.890 Other specified postprocedural states; Z87.891 Personal history of nicotine dependence; I10 Essential (primary) hypertension
CPT/HCPCS: 99283

== ENCOUNTER → 2018-07-24 | Outpatient (CLI) | payer BC, MEDICAID ==
[2018-07-24 13:17] LABS: ABSOLUTE EOSINOPHILS # (AUTO) 0.2 10^3/uL (0.0-0.6); ABSOLUTE LYMPHOCYTES (AUTO) 2.1 10^3/uL (0.5-4.7); ABSOLUTE MONOCYTES (AUTO) 0.3 10^3/uL (0.1-1.4); ABSOLUTE NEUT (AUTO) 2.6 10^3/uL (1.7-8.2); BASOPHILS % (AUTO) 0.9 % (0-2); HEMATOCRIT 31.9 % (36.0-47.0); HEMOGLOBIN 10.1 g/dL (12.0-15.5); LYMPHOCYTES % (AUTO) 39.9 % (13-45); MEAN CORPUSCULAR HEMOGLOBIN 26.2 pg (27.0-33.4); MEAN CORPUSCULAR HGB CONC 31.7 g/dL (32.0-36.0); MEAN CORPUSCULAR VOLUME 83 fl (80-97); PLATELET COUNT 346 10^3/uL (150-450); RED BLOOD COUNT 3.87 10^6/uL (3.72-5.28); RED CELL DISTRIBUTION WIDTH 14.9 % (11.5-14.0); SEGMENTED NEUTROPHILS % (AUTO) 50.2 % (42-78); TOTAL CELLS COUNTED % (AUTO) 100 %; WHITE BLOOD COUNT 5.2 10^3/uL (4.0-10.5)
[2018-07-24 13:43] LABS: ALANINE AMINOTRANSFERASE 44 U/L (9-52); ALBUMIN 3.5 g/dL (3.5-5.0); ALKALINE PHOSPHATASE 108 U/L (38-126); ANION GAP 8 (5-19); ASPARTATE AMINO TRANSFERASE 31 U/L (14-36); BILIRUBIN,DIRECT 0.3 mg/dL (0.0-0.4); BILIRUBIN,TOTAL 0.4 mg/dL (0.2-1.3); BLOOD UREA NITROGEN 31 mg/dL (7-20); CALCIUM 9.4 mg/dL (8.4-10.2); CARBON DIOXIDE 23 mmol/L (22-30); CHLORIDE 111 mmol/L (98-107); CHOLESTEROL 149.64 mg/dL (0-200); GLUCOSE 70 mg/dL (75-110); POTASSIUM 5.4 mmol/L (3.6-5.0); SODIUM 142.2 mmol/L (137-145); TOTAL PROTEIN 6.9 g/dL (6.3-8.2); TRIGLYCERIDES 76 mg/dL (<150)
[2018-07-24 13:54] LABS: DIRECT LDL 72 mg/dL (<100)
== END ==
LOC: OD 11:46
PROVIDERS: ATTEND Family Medicine
DX: I10 Essential (primary) hypertension (principal); E78.5 Hyperlipidemia, unspecified
CPT/HCPCS: 36415; 80053; 80061; 85025

== ENCOUNTER 2019-09-06 13:49 | Emergency (ER) | payer BC, MEDICAID ==
[2019-09-06 14:16] LABS: ABSOLUTE BASOPHILS # (AUTO) 0.1 10^3/uL (0.0-0.2); ABSOLUTE EOSINOPHILS # (AUTO) 0.1 10^3/uL (0.0-0.6); ABSOLUTE LYMPHOCYTES (AUTO) 1.7 10^3/uL (0.5-4.7); ABSOLUTE MONOCYTES (AUTO) 0.3 10^3/uL (0.1-1.4); ABSOLUTE NEUT (AUTO) 4.8 10^3/uL (1.7-8.2); EOSINOPHILS % (AUTO) 1.4 % (0-6); HEMATOCRIT 34.4 % (36.0-47.0); HEMOGLOBIN 11.3 g/dL (12.0-15.5); LYMPHOCYTES % (AUTO) 24.8 % (13-45); MEAN CORPUSCULAR HEMOGLOBIN 28.8 pg (27.0-33.4); MEAN CORPUSCULAR HGB CONC 32.8 g/dL (32.0-36.0); MEAN CORPUSCULAR VOLUME 88 fl (80-97); MONOCYTES % (AUTO) 4.5 % (3-13); PLATELET COUNT 299 10^3/uL (150-450); RED BLOOD COUNT 3.92 10^6/uL (3.72-5.28); RED CELL DISTRIBUTION WIDTH 13.2 % (11.5-14.0); SEGMENTED NEUTROPHILS % (AUTO) 68.3 % (42-78); TOTAL CELLS COUNTED % (AUTO) 100 %
--- NOTE | 2019-09-06 14:31 | RADIOLOGY REPORT (SQ) ---
Chest radiograph, single view EXAM DESCRIPTION: CHEST SINGLE VIEW IMAGES COMPLETED DATE/TIME: 09/06/2019 1:10 pm REASON FOR STUDY: chest pain. COMPARISON: 03/20/2018 EXAM PARAMETERS: NUMBER OF VIEWS: One view. TECHNIQUE: Single frontal radiographic view of the chest acquired. RADIATION DOSE: NA LIMITATIONS: None. FINDINGS: LUNGS AND PLEURA: No opacities, masses or pneumothorax. No pleural effusion. MEDIASTINUM AND HILAR STRUCTURES: No masses. Contour normal. HEART AND VASCULAR STRUCTURES: Interval CABG. Heart has normal size. No pulmonary vascular congesti on. BONES: No acute findings. HARDWARE: None in the chest. OTHER: No other significant finding. IMPRESSION: No acute cardiopulmonary disease. TECHNICAL DOCUMENTATION: JOB ID: [id number] 2010 [employer]- All Rights Reserved Reading location - IP/workstation name: [email or web address]
[2019-09-06 14:33] LABS: ALBUMIN 4.1 g/dL (3.5-5.0); ALKALINE PHOSPHATASE 137 U/L (38-126); ANION GAP 8 (5-19); ASPARTATE AMINO TRANSFERASE 20 U/L (14-36); BILIRUBIN,TOTAL 0.5 mg/dL (0.2-1.3); BLOOD UREA NITROGEN 34 mg/dL (7-20); CALCIUM 9.3 mg/dL (8.4-10.2); CARBON DIOXIDE 19 mmol/L (22-30); CHLORIDE 114 mmol/L (98-107); CREATINE KINASE 88 U/L (30-135); GLUCOSE 82 mg/dL (75-110); POTASSIUM 4.4 mmol/L (3.6-5.0); TOTAL PROTEIN 7.4 g/dL (6.3-8.2)
[2019-09-06] MEDS ORDERED: METOPROLOL TARTRATE 25 MG TABLET PO ONE (14:42)
[2019-09-06 14:43] LABS: CREATINE KINASE MB 1.24 ng/mL (<4.55); TROPONIN I 0.017 ng/mL
[2019-09-06] MEDS ORDERED: METOPROLOL TARTRATE PF/INJ 5 MG/5 ML SDV IV ONE (14:43)
--- NOTE | 2019-09-06 15:03 | ER Document Report ---
Entered by MIN SALAZAR SCRIBE 09/06/19 0616 Acting as scribe for:TATIANA ERWIN, DO ED General - General Chief Complaint: Chest Pain Stated Complaint: CHEST PAIN Time Seen by Provider: 09/06/19 14:29 Primary Care Provider: KRISTIE VERA MD [Primary Care Provider] - Follow up as needed Information source: Patient Notes: This 59 year old female patient presents to the emergency department today with complaints of chest pain. Patient states she was arguing with her daughter over her granddaughter being taken away when she takes care of her. Patient states she felt chest pain and it lasted for x15-20 minutes. Patient state this has not happened before. Patient states she had a headache and shortness of breath, but these symptoms were relieved after taking x4 baby aspirin from EMS personnel. Patient states she had a CABG x1.5 years ago and has not had problems since. Patient states she has hypertension and hypercholesterolemia, but stopped taking medications due to financial reasons. Patient states she has an appointment this week with her PCP to start her medications again. TRAVEL OUTSIDE OF THE [place] IN LAST 30 DAYS: No - Related Data Allergies/Adverse Reactions: lisinopril Allergy (Intermediate, Verified 09/06/19 13:53) Brassy Cough egg [Egg] Allergy (Verified 09/06/19 13:53) Home Medications: pt denies Past Medical History - General Information source: Patient - Social History Smoking Status: Current Every Day Smoker Cigarette use (# per day): Yes - 2 Chew tobacco use (# tins/day): No Frequency of alcohol use: None Drug Abuse: None Family History: Hypertension Patient has homicidal ideation: No - Past Medical History Cardiac Medical History: Reports: Hx Hypercholesterolemia, Hx Hypertension Past Surgical History: Reports: Hx Cardiac Surgery, Hx Open Heart Surgery - 02/2018; 3vCABG Review of Systems - Review of Systems Constitutional: No symptoms reported EENT: No symptoms reported Cardiovascular: See HPI, Chest pain Respiratory: See HPI, Short of breath Gastrointestinal: No symptoms reported Genitourinary: No symptoms reported Female Genitourinary: No symptoms reported Musculoskeletal: No symptoms reported Skin: No symptoms reported Hematologic/Lymphatic: No symptoms reported Neurological/Psychological: See HPI, Headaches -: Yes All other systems reviewed and negative Physical Exam - Vital signs Vitals: Temp 98.9 F 09/06/19 13:54 - General General appearance: Appears well, Alert - HEENT Head: Normocephalic, Atraumatic Eyes: Normal Pupils: PERRL - Respiratory Respiratory status: No respiratory distress Chest status: Nontender Breath sounds: Other - Slightly diminished bilaterally. No: Wheezing Chest palpation: Normal - Cardiovascular Rhythm: Regular Heart sounds: Normal auscultation Murmur: No - Abdominal Inspection: Normal, Obese Distension: No distension Bowel sounds: Normal Tenderness: Nontender - Extremities General upper extremity: Normal inspection. No: Edema General lower extremity: Normal inspection. No: Edema - Neurological Neuro grossly intact: Yes Cognition: Normal Orientation: AAOx4 Julissa Coma Scale Eye Opening: Spontaneous Julissa Coma Scale Verbal: Oriented Julissa Coma Scale Motor: Obeys Commands Julissa Coma Scale Total: 15 Speech: Normal - Psychological Associated symptoms: Normal affect, Normal mood - Skin Skin Temperature: Warm Skin Moisture: Dry Skin Color: Normal Course - Vital Signs Vital signs: Temp Pulse Resp BP Pulse Ox 98.9 F 23 H 211/109 H 97 09/06/19 13:54 09/06/19 15:16 09/06/19 15:16 09/06/19 15:16 - Laboratory Result Diagrams: 09/06/19 14:00 09/06/19 14:00 Laboratory results interpreted by me: 09/06/19 09/06/19 14:00 14:00 Hgb 11.3 L Hct 34.4 L Chloride 114 H Carbon Dioxide 19 L BUN 34 H Creatinine 2.38 H Est GFR ( Amer) 25 L Est GFR (MDRD) Non-Af 21 L Alkaline Phosphatase 137 H Discharge - Discharge Clinical Impression: Hypertensive urgency, Renal insufficiency Hypertension Qualifiers: Hypertension type: unspecified Qualified Code(s): I10 - Essential (primary) hypertension Condition: Stable Disposition: AGAINST MEDICAL ADVICE Instructions: Chest Pain of Unclear Cause ([facility]) Additional Instructions: Call Dr. Vera for follow up. Please return here for any problems or any concerns. Take your medicine as directed. Your renal function is not normal and should be rechecked with Dr. Vera. Take 2 baby aspirin daily. Prescriptions: Atorvastatin Calcium [Lipitor 40 mg Tablet] 40 mg PO QHS #30 tablet Metoprolol Tartrate [Lopressor] 50 mg PO DAILY #30 tablet Referrals: VERA,SWETANG, MD [Primary Care Provider] - Follow up as needed I personally performed the services described in the documentation, reviewed and edited the documentation which was dictated to the scribe in my presence, and it accurately records my words and actions.
[2019-09-06 15:36] VITALS: BP 211/109
--- NOTE | 2019-09-06 22:43 | EKG REPORT ---
SEVERITY:- ABNORMAL ECG - SINUS TACHYCARDIA LEFT VENTRICULAR HYPERTROPHY ABNORMAL T, CONSIDER ISCHEMIA, LATERAL LEADS : Confirmed by: Tessa Licnoa MD 06-Sep-2019 22:42:34
== END 2019-09-06 15:20 | disposition left against medical advice (07) ==
LOC: ER 13:49
DX: I16.0 Hypertensive urgency (principal); I10 Essential (primary) hypertension; R07.9 Chest pain, unspecified; N28.9 Disorder of kidney and ureter, unspecified; R51 Headache; R06.02 Shortness of breath; F17.210 Nicotine dependence, cigarettes, uncomplicated; Z88.8 Allergy status to other drugs, medicaments and biological substances; Z91.012 Allergy to eggs
CPT/HCPCS: 93005; 99285; 96374; 36415; 82553; 82550; 85025; 80053; 84484; 71045; 93010; J3490